=== PATIENT | male | born 1965 | race Hispanic/Latino ===

== ENCOUNTER 2019-05-23 21:41 | Observation (INO) | payer MEDICARE ==
--- NOTE | 2019-05-23 22:28 | Emergency Department Report ---
ED Shortness of Breath HPI - General Chief Complaint: Dyspnea/Respdistress Stated Complaint: PAMELA Time Seen by Provider: 05/23/19 22:09 Source: patient, EMS Mode of arrival: Wheelchair Limitations: No Limitations - History of Present Illness Initial Comments: 53-year-old male with no known past medical history, denies having a primary care physician, presents to ED with shortness of breath since yesterday. Patient reports an episode of dyspnea on exertion on yesterday. Patient reports today while eating, he began to feel short of breath again. Patient reports he had associated stabbing chest pain at that time as well. Patient denies fever, but reports her cough today during his dyspneic episode. He denies any sick contacts or travel outside of the country. Patient denies any nausea or vomiting, leg pain or swelling. Patient also reports associated orthopnea. EMS was called, patient was given a breathing treatment which he states has helped his symptoms. Per EMS, initial O2 sat 91% on room air. Patient denies any chest pain at this time. Patient reports tobacco use. PCP: none MD Complaint: shortness of breath -: days(s) (2) Severity: moderate Quality: stabbing Consistency: now resolved Improves With: bronchodilators, upright position Worsens With: lying flat, exertion Treatments Prior to Arrival: bronchodilator - Related Data Previous Rx's Medication Instructions Recorded Last Taken Type Albuterol INH(or & Nicu Only) 2 puff IH Q4H PRN #1 inhalation 11/20/12 Unknown Rx [ProAir HFA Inhaler] HYDROcodone/APAP 5-325 [[place] 1 each PO Q6HR PRN #7 tablet 12/02/13 Unknown Rx 5/325] Promethazine [Phenergan] 25 mg PO Q6H PRN #7 tablet 12/02/13 Unknown Rx Sulfamethoxazole/Trimethoprim 1 each PO BID #14 tablet 12/02/13 Unknown Rx [Bactrim Ds] Ciprofloxacin HCl [Cipro] 500 mg PO Q12H #20 tab 01/23/14 Unknown Rx HYDROcodone/APAP 10-325 [[place] 1 each PO Q4-6H PRN #20 tablet 01/23/14 Unknown Rx 10-325 mg TAB] Sulfamethoxazole/Trimethoprim 1 each PO Q12H #20 tablet 01/23/14 Unknown Rx [Bactrim Ds] Allergies Allergy/AdvReac Type Severity Reaction Status Date / Time No Known Allergies Allergy Unverified 11/18/12 11:13 ED Review of Systems ROS: Stated complaint: PMAELA Other details as noted in HPI Comment: All other systems reviewed and negative Constitutional: denies: chills, fever Respiratory: cough, orthopnea, SOB with exertion Cardiovascular: chest pain Gastrointestinal: denies: nausea, vomiting Musculoskeletal: other (Denies leg pain and swelling) ED Past Medical Hx - Past Medical History Hx Hypertension: Yes Hx Diabetes: Yes (currently controlled by diet and exercise.) Additional medical history: unknown medical history - Surgical History Additional Surgical History: unable to obtain - Social History Smoking Status: Current Every Day Smoker Substance Use Type: None - Medications Home Medications: Home Medications Medication Instructions Recorded Confirmed Last Taken Type Albuterol INH(or & Nicu Only) 2 puff IH Q4H PRN #1 inhalation 11/20/12 Unknown Rx [ProAir HFA Inhaler] HYDROcodone/APAP 5-325 [[place] 1 each PO Q6HR PRN #7 tablet 12/02/13 Unknown Rx 5/325] Promethazine [Phenergan] 25 mg PO Q6H PRN #7 tablet 12/02/13 Unknown Rx Sulfamethoxazole/Trimethoprim 1 each PO BID #14 tablet 12/02/13 Unknown Rx [Bactrim Ds] Ciprofloxacin HCl [Cipro] 500 mg PO Q12H #20 tab 01/23/14 Unknown Rx HYDROcodone/APAP 10-325 [[place] 1 each PO Q4-6H PRN #20 tablet 01/23/14 Unknown Rx 10-325 mg TAB] Sulfamethoxazole/Trimethoprim 1 each PO Q12H #20 tablet 01/23/14 Unknown Rx [Bactrim Ds] ED Physical Exam - General Limitations: No Limitations General appearance: alert, in no apparent distress - Head Head exam: Present: atraumatic - Eye Eye exam: Present: normal appearance - ENT ENT exam: Present: mucous membranes moist - Neck Neck exam: Present: normal inspection - Respiratory Respiratory exam: Present: rales - Cardiovascular Cardiovascular Exam: Present: regular rate, normal rhythm - GI/Abdominal GI/Abdominal exam: Present: soft. Absent: distended, tenderness - Extremities Exam Extremities exam: Present: normal inspection. Absent: pedal edema, calf tenderness - Neurological Exam Neurological exam: Present: alert, oriented X3 - Psychiatric Psychiatric exam: Present: normal affect, normal mood - Skin Skin exam: Present: warm, dry, intact, normal color ED Course Vital Signs 05/23/19 05/23/19 05/23/19 22:04 22:31 23:00 Temperature 98.3 F Pulse Rate 99 H 86 80 Respiratory 26 H 26 H 16 Rate Blood Pressure 181/116 147/99 154/96 O2 Sat by Pulse 97 95 98 Oximetry 05/24/19 05/24/19 00:00 00:31 Temperature Pulse Rate 79 84 Respiratory 16 15 Rate Blood Pressure 147/94 149/103 O2 Sat by Pulse 97 95 Oximetry ED Medical Decision Making - Lab Data Result diagrams: 05/23/19 22:39 05/23/19 22:39 - EKG Data -: EKG Interpreted by Ms EKG shows normal: sinus rhythm, axis Rate: normal - EKG Data Interpretation: nonspecific ST-T wave daniel - Radiology Data Radiology results: report reviewed, image reviewed - Differential Diagnosis ACS, CHF, pneumonia Critical care attestation.: If time is entered above; I have spent that time in minutes in the direct care of this critically ill patient, excluding procedure time. ED Disposition Clinical Impression: Acute chest pain, Uncontrolled hypertension, Hypokalemia Disposition: -09 OP ADMIT IP TO THIS HOSP Is pt being admited?: Yes Condition: Stable Instructions: Chest Pain (ED), Hypertension (ED) Referrals: LEOBARDO HARVEY MD [Primary Care Provider] - 3-5 Days Time of Disposition: 00:37
[2019-05-23 23:00] LABS: Basophils # (Auto) 0.1 K/mm3 (0.0-0.1); Basophils % (Auto) 1.4 % (0.0-1.8); Eosinophils # (Auto) 0.2 K/mm3 (0.0-0.4); Eosinophils % (Auto) 2.4 % (0.0-4.3); Hematocrit 38.7 % (35.5-45.6); Hemoglobin 13.2 gm/dl (11.8-15.2); Lymphocytes # (Auto) 1.6 K/mm3 (1.2-5.4); Lymphocytes % (Auto) 21.8 % (13.4-35.0); Mean Corpuscular HGB Conc 34 % (32-34); Mean Corpuscular Volume 86 fl (84-94); Monocytes # (Auto) 0.3 K/mm3 (0.0-0.8); Monocytes % (Auto) 4.4 % (0.0-7.3); Platelet Count 190 K/mm3 (140-440); Red Cell Distribution Width 15.4 % (13.2-15.2)
[2019-05-23 23:06] LABS: Partial Thromboplastin Time 29.7 Sec. (24.2-36.6)
--- NOTE | 2019-05-23 23:06 | XRay Report ---
CHEST 1 VIEW 10:25 PM INDICATION / CLINICAL INFORMATION: Chest pain and shortness of breath. COMPARISON: 11/18/12. FINDINGS: SUPPORT DEVICES: None. HEART / MEDIASTINUM: The heart size and pulmonary vasculature are normal. The aorta is normal in lionel sacha. LUNGS / PLEURA: No significant pulmonary or pleural abnormality. No pneumothorax. ADDITIONAL FINDINGS: No significant additional findings. IMPRESSION: No acute abnormality or significant change. Signer Name: Tony Baugh MD Signed: 05/23/2019 11:01 PM Workstation Name: [id number]
[2019-05-23 23:12] LABS: BUN/Creatinine Ratio 11; Blood Urea Nitrogen 9 mg/dL (9-20); Calcium 8.8 mg/dL (8.4-10.2); Hemolysis Index 7
[2019-05-23] MEDS ORDERED: POTASSIUM CHLORIDE ER 20 MEQ TAB PO ONE (23:17)
[2019-05-23] MEDS ORDERED: ASPIRIN 325 MG TAB PO ONE (23:17)
--- NOTE | 2019-05-24 00:28 | Cat Scan Report ---
CTA CHEST WITH IV CONTRAST INDICATION / CLINICAL INFORMATION: MAIN: chest pain, back pain, sob. 100 ML OMNIPAQUE 350. TECHNIQUE: Axial CT images were obtained through the chest after injection of 100 mL IV contrast. 3 plane MIP an d/or 3D reconstructions were produced. All CT scans at this location are performed using CT dose redu ction for [facility] by means of automated exposure control. COMPARISON: Chest radiograph, 05/23/2019 FINDINGS: PULMONARY ARTERIES: No pulmonary emboli. THORACIC AORTA: No significant abnormality. HEART: No significant abnormality. CORONARY ARTERIES: No significant calcification. PLEURA: Trace right pleural effusion. No pneumothorax. LYMPH NODES: There are a few slightly prominent lymph nodes scattered throughout the mediastinum whic h are nonspecific. LUNGS: There is mild parenchymal disease in the left lung base with a linear distribution which wou ld suggest the presence of atelectasis. ADDITIONAL FINDINGS: None. UPPER ABDOMEN: No acute findings. SKELETAL STRUCTURES: Mild spondylitic change of the lower thoracic spine is present. IMPRESSION: 1. No CT evidence for pulmonary embolism. 2. Mild left lower lobe parenchymal disease. The appearance is more suggestive of atelectasis. 3. Mild mediastinal adenopathy of doubtful clinical significance. 4. Trace right pleural effusion. Signer Name: Nia Perry MD Signed: 05/24/2019 12:24 AM Workstation Name: [id number]
[2019-05-24] MEDS ORDERED: FUROSEMIDE 20 MG/2 ML INJ IV STA (04:18)
[2019-05-24] MEDS ORDERED: ALBUTEROL 2.5 MG/3 ML NEBU IH PRN (04:19)
[2019-05-24] MEDS ORDERED: ACETAMINOPHEN 325 MG TAB PO PRN (04:19)
[2019-05-24] MEDS ORDERED: ONDANSETRON 4 MG/2 ML INJ IV PRN (04:19)
[2019-05-24] MEDS ORDERED: HYDROcodone/ACETAMINOPHEN 5-325 MG TAB PO PRN (04:19)
[2019-05-24] MEDS ORDERED: NALOXONE 0.4 MG/1 ML INJ IV PRN (04:19)
[2019-05-24] MEDS ORDERED: DEXTROSE 50% IN WATER (25GM) 50 ML SYRINGE IV PRN (04:24)
[2019-05-24] MEDS ORDERED: LISINOPRIL 5 MG TAB PO SCH (04:27)
--- NOTE | 2019-05-24 04:46 | History and Physical Report ---
History of Present Illness Date of examination: 05/24/19 Date of admission: 05/24/19 02:21 Chief complaint: SOB and CARDONA all day History of present illness: 53-year-old male with past medical history of MR, DM, HTN who has not been evaluated by a primary care physician in two years presents to the ED with shortness of breath X 1 day. Patient reports an episode of dyspnea on exertion for a day prior to presentation with his sister with whom he lives and who is his manager valuation. Patient reports today while eating, he began to feel short of breath again. Patient reports he had associated stabbing chest pain at that time as well. He denies any coughing or choking with meals but his sister tells me that he started to cough today. Patient denies fever, but reports her cough today during his dyspneic episodes. He denies any sick contacts or travel outside of the country. Patient denies any nausea or vomiting, leg pain or swelling. Patient also reports associated orthopnea. EMS was called, patient was given a breathing treatment which he states helped his symptoms. Per EMS, initial O2 sat 91% on room air. Patient denies any chest pain at this time. Patient reports tobacco use with Cigars X 2- 3 years. I asked pt about potential drug use specifically Cocaine as medical records here show that on 11/18/12, pt was admitted for AMS from [facility] and Cocaine use. PT denies any illicit drug use. His sister explains to me that she thinks pt was slipped something at a democrat he was at around the time he was admitted on 11/18/12. Of note, even though he has Medicare, he has not seen a physician in two years per Sister and I wonder why his sister with whom he lives has been ok with it. Past History Past Medical History: diabetes, hypertension, other (mental retardation) Social history: smoking, full code. denies: IV drug use Family history: hypertension Medications and Allergies Allergies Allergy/AdvReac Type Severity Reaction Status Date / Time No Known Allergies Allergy Unverified 11/18/12 11:13 Home Medications Medication Instructions Recorded Confirmed Last Taken Type No Known Home Medications [No 05/24/19 05/24/19 Unknown History Reported Home Medications] Active Meds: Active Medications Acetaminophen (Tylenol) 650 mg PO Q4H PRN PRN Reason: Pain MILD(1-3)/Fever >100.5/CORCORAN Acetaminophen/Hydrocodone Bitart ([place] 5/325) 2 each PO Q6H PRN PRN Reason: Pain, Moderate (4-6) Albuterol (Proventil) 2.5 mg IH Q4HRT PRN PRN Reason: Shortness Of Breath Bisacodyl (Dulcolax) 10 mg NM QDAY PRN PRN Reason: Constipation unrelieved by MOM Chlorthalidone (Thalitone) 25 mg PO QDAY EVELYN Dextrose (D50w (25gm) Syringe) 50 ml IV Q30MIN PRN; Protocol PRN Reason: Hypoglycemia Insulin Human Lispro (Humalog) 0 unit SUB-Q ACHS EVELYN; Protocol Lisinopril (Zestril) 5 mg PO QDAY EVELYN Naloxone HCl (Naloxone) 0.1 mg IV Q2MIN PRN PRN Reason: Res Rate </= 8 or 02 SAT < 92% Ondansetron HCl (Zofran) 4 mg IV Q8H PRN PRN Reason: Nausea And Vomiting Sodium Chloride (Sodium Chloride Flush Syringe 10 Ml) 10 ml IV BID EVELYN Sodium Chloride (Sodium Chloride Flush Syringe 10 Ml) 10 ml IV PRN PRN PRN Reason: LINE FLUSH Review of Systems All systems: negative Cardiovascular: chest pain Respiratory: cough, shortness of breath Exam - Constitutional Vitals: Temp Pulse Resp BP Pulse Ox 98.3 F 78 15 139/93 95 05/23/19 22:04 05/24/19 02:19 05/24/19 02:19 05/24/19 02:19 05/24/19 01:30 General appearance: Present: no acute distress, well-nourished - Respiratory Respiratory: left: diminished, rhonchi Results - Labs CBC & Chem 7: 05/23/19 22:39 05/23/19 22:39 Labs: Laboratory Last Values WBC 7.5 K/mm3 (4.5-11.0) 05/23/19 22:39 RBC 4.50 M/mm3 (3.65-5.03) 05/23/19 22:39 Hgb 13.2 gm/dl (11.8-15.2) 05/23/19 22:39 Hct 38.7 % (35.5-45.6) 05/23/19 22:39 MCV 86 fl (84-94) 05/23/19 22:39 MCH 29 pg (28-32) 05/23/19 22:39 MCHC 34 % (32-34) 05/23/19 22:39 RDW 15.4 % (13.2-15.2) H 05/23/19 22:39 Plt Count 190 K/mm3 (140-440) 05/23/19 22:39 Lymph % (Auto) 21.8 % (13.4-35.0) 05/23/19 22:39 [place] % (Auto) 4.4 % (0.0-7.3) 05/23/19 22:39 Eos % (Auto) 2.4 % (0.0-4.3) 05/23/19 22:39 Baso % (Auto) 1.4 % (0.0-1.8) 05/23/19 22:39 Lymph # 1.6 K/mm3 (1.2-5.4) 05/23/19 22:39 [place] # 0.3 K/mm3 (0.0-0.8) 05/23/19 22:39 Eos # 0.2 K/mm3 (0.0-0.4) 05/23/19 22:39 Baso # 0.1 K/mm3 (0.0-0.1) 05/23/19 22:39 Seg Neutrophils % 70.0 % (40.0-70.0) 05/23/19 22:39 Seg Neutrophils # 5.2 K/mm3 (1.8-7.7) 05/23/19 22:39 PT 13.3 Sec. (12.2-14.9) 05/23/19 22:39 INR 1.00 (0.87-1.13) 05/23/19 22:39 APTT 29.7 Sec. (24.2-36.6) 05/23/19 22:39 D-Dimer 414.45 ng/mlDDU (0-234) H 05/23/19 22:39 Sodium 138 mmol/L (137-145) 05/23/19 22:39 Potassium 3.1 mmol/L (3.6-5.0) L 05/23/19 22:39 Chloride 98.3 mmol/L (98-107) 03/06/20 22:39 Carbon Dioxide 26 mmol/L (22-30) 05/23/19 22:39 Anion Gap 17 mmol/L 05/23/19 22:39 BUN 9 mg/dL (9-20) 05/23/19 22:39 Creatinine 0.8 mg/dL (0.8-1.5) 05/23/19 22:39 Estimated GFR > 60 ml/min 05/23/19 22:39 BUN/Creatinine Ratio 11 % 05/23/19 22:39 Glucose 220 mg/dL (75-100) H 05/23/19 22:39 Calcium 8.8 mg/dL (8.4-10.2) 05/23/19 22:39 Troponin T < 0.010 ng/mL (0.00-0.029) 05/24/19 02:05 NT-Pro-B Natriuret Pep 941.0 pg/mL (0-900) H 05/23/19 22:39 Assessment and Plan Assessment and plan: Acute Respiratory failure with Hypoxia - Mild - Due to probable left aspiration pneumonitis and RT pleural effusion. CHF ought - of note, pt began coughing profusely today. - Will have Speech evaluate pt and to assess for dysphagia. His hx of MR is noted - checking Sputum culture and Procalcitonin. No signs of Sepsis, Nl WBC. Afebrile. Will not start antibiotics at this time Hypertension, Essential - uncontrolled - Due to Medication non adherence- unknown med - Start Chlorthalidone and Lisinopril - reassess - TTecho ordered. -No signs of CVA on PX DM - uncontrolled - Check Aic - RSSI. - MEtformin if no intervention while in house Age Appropriate screening - in a pt with no medical care in two years - check TSH, lipid profile, PSA. Full code
[2019-05-24 06:11] LABS: BUN/Creatinine Ratio 13; Blood Urea Nitrogen 9 mg/dL (9-20)
[2019-05-24 06:12] LABS: Calcium 9.2 mg/dL (8.4-10.2); Hemolysis Index 7
[2019-05-24 06:24] LABS: Chol/HDL Ratio 3.43 %; HDL Cholesterol 51 mg/dL (40-59); LDL Cholesterol,Direct 114 mg/dL (50-130)
[2019-05-24] MEDS: INSULIN LISPRO 100 UNIT/ML SUB-Q SCH ×3 (08:00→17:13)
[2019-05-24] MEDS: CHLORTHALIDONE 25 MG TAB PO SCH (10:44)
--- NOTE | 2019-05-24 12:21 | Event Note ---
Date: 05/24/19 Patient admitted earlier this morning for shortness of breath. By the time I saw the patient he was stable. Please continue management as stated in the H&P that was done this morning.
[2019-05-24 14:16] LABS: Amphetamine Screen,Urine PRESUMPTIVE NEGATIVE; Benzodiazepines Screen,Urine PRESUMPTIVE NEGATIVE; Cannabinoid Screen,Urine PRESUMPTIVE NEGATIVE; Cocaine Screen,Urine PRESUMPTIVE NEGATIVE; Methadone Screen,Urine PRESUMPTIVE NEGATIVE; Opiate Screen,Urine PRESUMPTIVE NEGATIVE
[2019-05-25] MEDS: INSULIN LISPRO 100 UNIT/ML SUB-Q SCH ×3 (06:54→13:33)
[2019-05-25] MEDS: CHLORTHALIDONE 25 MG TAB PO SCH (09:02)
--- NOTE | 2019-05-25 10:58 | Discharge Summary ---
Providers - Providers Date of Admission: 05/24/19 02:21 Date of discharge: 05/25/19 Attending physician: TALIA RYAN MD 05/24/19 05:52 Speech Therapy Evaluation and Treat [CONS] Routine Reason For Exam: coughing with Left aspiration pneumonitis. [facility] Reason for admission: SOB Condition: Stable Pertinent studies: Echo; cardiomyopathy Hospital course: 53-year-old male with past medical history of MR, DM, HTN who has not been evaluated by a primary care physician in two years presents to the ED with shortness of breath X 1 day. Patient reports an episode of dyspnea on exertion for a day prior to presentation with his sister with whom he lives and who is his administrative accountant. Patient reports today while eating, he began to feel short of breath again. Patient reports he had associated stabbing chest pain at that time as well. He denies any coughing or choking with meals but his sister tells me that he started to cough today. Patient denies fever, but reports her cough today during his dyspneic episodes. He denies any sick contacts or travel outside of the country. Patient denies any nausea or vomiting, leg pain or swelling. Patient also reports associated orthopnea. EMS was called, patient was given a breathing treatment which he states helped his symptoms. Per EMS, initial O2 sat 91% on room air. Patient denies any chest pain at this time. Patient reports tobacco use with Cigars X 2-3 years. Was asked about potential drug use specifically Cocaine as medical records here show that on 11/18/12, pt was admitted for AMS from AMphatemine and Cocaine use. PT denies any illicit drug use. His sister explains to me that she thinks pt was slipped something at a green party he was at around the time he was admitted on 11/18/12. Of note, even though he has Medicare, he has not seen a physician in two years per Sister and I wonder why his sister with whom he lives has been ok with it. Patient was admitted to the floor, chest x-ray and CTA was normal. Patient did not have any chest pain or shortness of breath after admission patient is doing well. Echo was done results pending. Patient's blood pressure was uncontrolled. I gave him HCTZ and lisinopril prescription. Patient has diet- controlled diabetes mellitus and blood sugar is not that much high. Patient does not need any hypoglycemic and counseled to adhere to his diet. Patient is hemodynamically stable. Echo showed EF of 30-35% with diastolic dysfunction. patient didn't have any signs of CHF at this time and will schedule to have follow up with plate fitter as an O/P. Disposition: DC-01 TO HOME OR SELFCARE Time spent for discharge: 31 minutes - Discharge Diagnoses (1) Uncontrolled hypertension Status: Acute (2) Narcotic induced mental alteration Status: Acute (3) Shortness of breath Status: Acute (4) Cardiomyopathy Status: Acute Core Measure Documentation - Palliative Care Palliative Care/ Comfort Measures: Not Applicable - Core Measures Any of the following diagnoses?: none Exam - Physical Exam Narrative exam: Not in cardiopulmonary distress. The patient is morbidly obese. Vital signs as documented. Head exam is unremarkable. No scleral icterus . Neck is without jugular venous distension, thyromegaly, or carotid bruits. Lungs are clear to auscultation. Cardiac exam reveals regular rate and Rhythm. Abdominal exam reveals normal bowel sounds, nontender, no organomegaly. Extremities are nonedematous and both femoral and pedal pulses are normal. CHECKER STOCKER: Alert and oriented 3. No focal weakness. - Constitutional Vitals: Temp Pulse Resp BP Pulse Ox 97.7 F 74 18 171/106 96 05/25/19 08:43 05/25/19 09:02 05/25/19 08:43 05/25/19 09:02 05/25/19 08:43 Plan Activity: no restrictions Weight Bearing Status: Full Weight Bearing Diet: low salt Follow up with: LEOBARDO HARVEY MD [Primary Care Provider] - 3-5 Days JOHN SALINAS MD [Staff Physician] - 7 Days (Cardiomyopathy) Prescriptions: Lisinopril/Hydrochlorothiazide [Zestoretic 20-25 mg] 1 tab PO QDAY #30 tab
[2019-05-25 12:13] VITALS: BP 156/114
[2019-05-25 12:42] LABS: BUN/Creatinine Ratio 13; Blood Urea Nitrogen 14 mg/dL (9-20); Calcium 9.4 mg/dL (8.4-10.2); Hemolysis Index 5
[2019-05-25] MEDS ORDERED: hydrALAZINE 10 MG TAB PO ONE ×2 (13:00→14:00)
[2019-05-25] MEDS ORDERED: hydrALAZINE 20 MG/1 ML INJ IV ONE (14:00)
== END 2019-05-25 17:07 | disposition home or self-care (01) ==
LOC: ED 21:41 → 4A 05-24 02:21
PROVIDERS: ADMIT Hospitalist; ATTEND Internal Medicine
DX: J96.01 Acute respiratory failure with hypoxia (principal); I10 Essential (primary) hypertension; I42.9 Cardiomyopathy, unspecified; E11.9 Type 2 diabetes mellitus without complications; E87.6 Hypokalemia; R07.89 Other chest pain; F17.200 Nicotine dependence, unspecified, uncomplicated; Z79.4 Long term (current) use of insulin
CPT/HCPCS: 36415; 71045; 71275; 80048; 80061; 80307; 82962; 83036; 83880; 84145; 84153; 84443; 84484; 85025; 85379; 85610; 85730; 93005; 93010; 93306; 96374; 99285; 99406; G0378; J0360; Q9967